=== PATIENT | male | born 1995 | race Native Hawaiian/Other Pacific Islander ===

== ENCOUNTER 2019-04-22 08:20 | Outpatient (CLI) | payer BC | END 2019-04-22 08:21 | disposition home or self-care (01) | LOC: C.LAB 08:20 | DX: E11.65 Type 2 diabetes mellitus with hyperglycemia (principal); I10 Essential (primary) hypertension; E04.2 Nontoxic multinodular goiter; E78.2 Mixed hyperlipidemia; E01.8 Other iodine-deficiency related thyroid disorders and allied conditions; E06.3 Autoimmune thyroiditis; E88.81 Metabolic syndrome and other insulin resistance; E29.1 Testicular hypofunction; D51.9 Vitamin B12 deficiency anemia, unspecified; E55.9 Vitamin D deficiency, unspecified; E64.3 Sequelae of rickets; D64.9 Anemia, unspecified; N30.00 Acute cystitis without hematuria; R30.9 Painful micturition, unspecified; N30.01 Acute cystitis with hematuria ==